=== PATIENT | female | born 1985 | race Caucasian/White ===

== ENCOUNTER 2016-10-25 11:12 | Emergency (ER) | payer OTHER ==
[2016-10-25 11:43] VITALS: BP 127/70
--- NOTE | 2016-10-25 12:52 | UC ---
Throat Pain/Nasal Thaddeus HPI - HPI Summary HPI Summary: The patient comes in today for: 1. Sore throat, and right ear pain. Onset: Sore throat for one day. Right otalgia x 2 weeks. Palliative/provocative: Tylenol and Excedrin helps the pain. Quality: Sharp itch Region: Throat and right ear. Severity: 2/10 Time: Constant. Associated symptoms: FEvers: None. Discharge from ear: Dark yellow, greenish. * - History of Current Complaint Chief Complaint: UCRespiratory Stated Complaint: CONGESTION SORE THROAT EARS Time Seen by Provider: 10/25/16 12:04 Hx Last Menstrual Period: 10/25/16 - Allergies/Home Medications Allergies/Adverse Reactions: Allergies Allergy/AdvReac Type Severity Reaction Status Date / Time No Known Allergies Allergy Verified 10/25/16 11:43 Home Medications: Home Medications Levothyroxine TAB* [Synthroid 137 MCG TAB*] 137 mcg PO 0800 10/25/16 [History Confirmed 10/25/16] PMH/Surg Hx/FS Hx/Imm Hx Endocrine History Of: Reports: Thyroid Disease - Hypothyroid, Dyslipidemia Denies: Diabetes, Hyperthyroidism, Hypothyroidism Cardiovascular History Of: Denies: Cardiac Disorders, Hypertension, Pacemaker/ICD, Myocardial Infarction , Congestive Heart Failure, Atrial Fibrillation, Deep Vein Thrombosis, Bleeding Disorders Respiratory History Of: Denies: COPD, Asthma, Bronchitis, Pneumonia, Pulmonary Embolism GI/ History Of: Denies: Gastroesophageal Reflux, Ulcer, Gastrointestinal Bleed, Gall Bladder Disease, Kidney Stones, Diverticulitis, Renal Disease, Urosepsis Neurological History Of: Denies: TIA, CVA, Dementia, Seizures, Migraine Psychological History Of: Denies: Anxiety, Depression, Bipolar Disorder, Schizophrenia, Post Traumatic Stress Disorder Cancer History Of: Denies: Lung Cancer, Colorectal Cancer, Breast Cancer, Prostate Cancer, Cervical Cancer - Surgical History Surgical History: Yes Surgery Procedure, Year, and Place: breast implants- 05. ectopic . ear surgery. c section x3. thyroidectomy - Family History Known Family History: Negative: Cardiac Disease, Hypertension - Social History Occupation: Employed Full-time Alcohol Use: None Substance Use Type: None Smoking Status (MU): Former Smoker Type: Cigarettes Amount Used/How Often: < 1/2 PPD Length of Time of Smoking/Using Tobacco: 17 Years Have You Smoked in the Last Year: Yes When Did the Patient Quit Smoking/Using Tobacco: 2014 - Immunization History Most Recent Influenza Vaccination: Not the Season Review of Systems Constitutional: Negative Skin: Negative Eyes: Negative ENT: Sore Throat, Ear Ache Respiratory: Negative Cardiovascular: Negative Gastrointestinal: Negative Genitourinary: Negative All Other Systems Reviewed And Are Negative: Yes Physical Exam Triage Information Reviewed: Yes Appearance: Well-Appearing, No Pain Distress, Well-Nourished Vital Signs: Initial Vital Signs Temp 98.0 F 10/25/16 11:40 Pulse 88 10/25/16 11:40 Resp 16 10/25/16 11:40 BP 127/70 10/25/16 11:40 Pulse Ox 98 10/25/16 11:40 Vital Signs Reviewed: Yes Eyes: Positive: Conjunctiva Clear. Negative: Discharge ENT: Positive: Hearing grossly normal, Other: - Right ear: blue pe tube in place. clearish fluid in the opening of the blue pe tube. The canal was erythematous and swollen. Pinna traction does elicit pain. Left ear: Canal not edematous or red, but the TM showed pus-like material on the TM.. Negative : Pharyngeal erythema Dental: Negative: Gross Decay/Caries @, Dental Fracture @ Neck: Positive: Supple, Nontender, No Lymphadenopathy. Negative: Nuchal Rigidity Respiratory: Positive: Lungs clear, No respiratory distress, No accessory muscle use. Negative: Rhonchi, Wheezing Cardiovascular: Positive: RRR, No Murmur Abdomen Description: Positive: Nontender, No Organomegaly, Soft Musculoskeletal: Positive: Strength Intact, ROM Intact Neurological: Positive: Alert, Muscle Tone Normal Psychological: Positive: Age Appropriate Behavior, Consolable Skin: Negative: rashes, breakdown Throat Pain/Nasal Course/Dx - Differential Dx/Diagnosis Provider Diagnoses: otitis media (left). otitis externa (right) Discharge - Discharge Plan Condition: Stable Disposition: HOME Patient Education Materials: Otitis Media (ED), Otitis Externa (ED) Forms: *Work Release Referrals: Delores Kauffman MD [Primary Care Provider] - 1 Week (Please see your primary care provider in about one to two weeks to see how well you are doing. If you get worse, please be seen sooner.)
== END 2016-10-25 13:15 | disposition home or self-care (01) ==
LOC: UCCORT 11:12
DX: H66.92 Otitis media, unspecified, left ear (principal); H60.91 Unspecified otitis externa, right ear; E03.9 Hypothyroidism, unspecified; Z87.891 Personal history of nicotine dependence
CPT/HCPCS: 99212; G0463

== ENCOUNTER 2016-11-06 19:24 | Emergency (ER) | payer OTHER ==
[2016-11-06 20:37] VITALS: BP 130/71
--- NOTE | 2016-11-06 20:52 | UC ---
Throat Pain/Nasal Thaddeus HPI - HPI Summary HPI Summary: throat pain for 2 days, no fever or other complaint, just finished PCN for ear infection, yesterday , still has left sided ear pain. - History of Current Complaint Chief Complaint: UCGeneralIllness Stated Complaint: THROAT Time Seen by Provider: 11/06/16 20:31 Hx Obtained From: Patient Hx Last Menstrual Period: September 2016 Onset/Duration: Sudden Onset, Lasting Days Severity: Moderate Associated Signs & Symptoms: Positive: Dysphagia, Hoarseness - Allergies/Home Medications Allergies/Adverse Reactions: Allergies Allergy/AdvReac Type Severity Reaction Status Date / Time No Known Allergies Allergy Verified 11/06/16 20:32 PMH/Surg Hx/FS Hx/Imm Hx Previously Healthy: Yes Endocrine History Of: Reports: Thyroid Disease - Hypothyroid, Dyslipidemia Denies: Diabetes, Hyperthyroidism, Hypothyroidism Cardiovascular History Of: Denies: Cardiac Disorders, Hypertension, Pacemaker/ICD, Myocardial Infarction , Congestive Heart Failure, Atrial Fibrillation, Deep Vein Thrombosis, Bleeding Disorders Respiratory History Of: Denies: COPD, Asthma, Bronchitis, Pneumonia, Pulmonary Embolism GI/ History Of: Denies: Gastroesophageal Reflux, Ulcer, Gastrointestinal Bleed, Gall Bladder Disease, Kidney Stones, Diverticulitis, Renal Disease, Urosepsis Neurological History Of: Denies: TIA, CVA, Dementia, Seizures, Migraine Psychological History Of: Denies: Anxiety, Depression, Bipolar Disorder, Schizophrenia, Post Traumatic Stress Disorder Cancer History Of: Denies: Lung Cancer, Colorectal Cancer, Breast Cancer, Prostate Cancer, Cervical Cancer - Surgical History Surgical History: Yes Surgery Procedure, Year, and Place: breast implants- 05. ectopic . ear surgery. c section x3. thyroidectomy - Family History Known Family History: Negative: Cardiac Disease, Hypertension - Social History Alcohol Use: None Substance Use Type: None Smoking Status (MU): Former Smoker Type: Cigarettes Amount Used/How Often: < 1/2 PPD Length of Time of Smoking/Using Tobacco: 17 Years Have You Smoked in the Last Year: Yes When Did the Patient Quit Smoking/Using Tobacco: 2014 - Immunization History Most Recent Influenza Vaccination: None Most Recent Tetanus Shot: UTD Most Recent Pneumonia Vaccination: N/A Review of Systems Constitutional: Negative Skin: Negative Eyes: Negative ENT: Sore Throat Respiratory: Negative Cardiovascular: Negative Gastrointestinal: Negative Genitourinary: Negative Motor: Negative Neurovascular: Negative Musculoskeletal: Negative Neurological: Negative Psychological: Negative All Other Systems Reviewed And Are Negative: Yes Physical Exam Triage Information Reviewed: Yes Appearance: Well-Nourished, Ill-Appearing, Pain Distress Vital Signs: Initial Vital Signs Temp 98.1 F 11/06/16 20:34 Pulse 62 11/06/16 20:34 Resp 18 11/06/16 20:34 BP 130/71 11/06/16 20:34 Pulse Ox 100 11/06/16 20:34 Vital Signs Reviewed: Yes Eye Exam: Normal ENT: Positive: Pharyngeal erythema, Tonsillar swelling, Tonsillar exudate, Other : - left TM has white exudate on TM, fluid behind TM, red and irritated ear canal, tube in right ear Dental Exam: Normal Neck exam: Normal Neck: Positive: Supple, Nontender, No Lymphadenopathy Respiratory Exam: Normal Respiratory: Positive: Chest non-tender, Lungs clear, Normal breath sounds Cardiovascular Exam: Normal Cardiovascular: Positive: RRR, No Murmur, Pulses Normal Abdominal Exam: Normal Abdomen Description: Positive: Nontender, No Organomegaly, Soft Bowel Sounds: Positive: Present Musculoskeletal Exam: Normal Musculoskeletal: Positive: Strength Intact, ROM Intact, No Edema Neurological Exam: Normal Neurological: Positive: Alert, Muscle Tone Normal Psychological Exam: Normal Skin Exam: Normal Throat Pain/Nasal Course/Dx - Course Course Of Treatment: hx obtained, exam performed, meds reviewed, rapid strep obtained, - Differential Dx/Diagnosis Differential Diagnosis/HQI/PQRI: Influenza, Laryngitis, Otitis Media, Pharyngitis, Sinusitis, URI Provider Diagnoses: serous otitis. pharyngitis Discharge - Discharge Plan Condition: Stable Disposition: HOME Prescriptions: predniSONE TAB* [Deltasone TAB*] 40 mg PO DAILY #14 tab Patient Education Materials: Serous Otitis Media (ED) Referrals: Delores Kauffman MD [Primary Care Provider] - Additional Instructions: take the prednisone as prescribed to help reduce inflammation and drain the ear. Warm compresses to the area and follow up with Dr Langley for any increase fever or ear pain.
== END 2016-11-06 21:06 | disposition home or self-care (01) ==
LOC: UCCORT 19:24
DX: H65.92 Unspecified nonsuppurative otitis media, left ear (principal); J02.9 Acute pharyngitis, unspecified; E03.9 Hypothyroidism, unspecified; E78.5 Hyperlipidemia, unspecified; Z87.891 Personal history of nicotine dependence
CPT/HCPCS: 87651; 99212; G0463

== ENCOUNTER 2017-08-30 12:46 | Emergency (ER) | payer OTHER ==
[2017-08-30 16:58] VITALS: BP 138/70
--- NOTE | 2017-08-30 17:30 | UC ---
Respiratory Complaint HPI - HPI Summary HPI Summary: 31F with cough ONSET YESTERDAY OF CONGESTION, KENT X 4 DAYS, ONSET OF KENT, STOMACH UPSET AND RIGHT EAR PAIN TODAY; DIARRHEA X 1 WK. FEVER LAST NIGHT 102. rest of the family has had the flu over the past few weeks and her sx really worsened in the past 24 hours and also with sinus pressure above and below her eyes. [ End ] - History of Current Complaint Chief Complaint: UCGeneralIllness Stated Complaint: KENT/CONGESTION/RT EAR COMPLAINT Time Seen by Provider: 08/30/17 17:25 Hx Obtained From: Patient Hx Last Menstrual Period: APPROX 1 MO AGO Onset/Duration: Gradual Onset Timing: Constant Severity Initially: Moderate Severity Currently: Moderate Pain Intensity: 5 Character: Cough: Nonproductive - Allergies/Home Medications Allergies/Adverse Reactions: Allergies Allergy/AdvReac Type Severity Reaction Status Date / Time No Known Allergies Allergy Verified 08/30/17 16:59 Home Medications: Home Medications [id number] [Tylenol Sinus Congestion 5-325-200 mg] 2 tab PO Q4H PRN 08/30/17 [History Confirmed 08/30/17] PMH/Surg Hx/FS Hx/Imm Hx Previously Healthy: Yes - Surgical History Surgical History: Yes Surgery Procedure, Year, and Place: breast implants- 05. ectopic . ear surgery. c section x3. thyroidectomy. REMOVAL OF BREAST IMPLANTS - Family History Known Family History: Negative: Cardiac Disease, Hypertension - Social History Occupation: Employed Full-time Lives: With Family Alcohol Use: None Substance Use Type: None Smoking Status (MU): Former Smoker Type: Cigarettes Amount Used/How Often: < 1/2 PPD Length of Time of Smoking/Using Tobacco: 17 Years Have You Smoked in the Last Year: Yes When Did the Patient Quit Smoking/Using Tobacco: 2014 - Immunization History Most Recent Influenza Vaccination: Not the 2017/2018 Season Most Recent Tetanus Shot: UTD Most Recent Pneumonia Vaccination: N/A Review of Systems Constitutional: Fever, Chills, Fatigue ENT: Sore Throat, Ear Ache, Nasal Discharge, Sinus Congestion, Sinus Pain/ Tenderness Respiratory: Cough Musculoskeletal: Myalgia Neurological: Headache Is Patient Immunocompromised?: No All Other Systems Reviewed And Are Negative: Yes Physical Exam Triage Information Reviewed: Yes Appearance: Well-Appearing, No Pain Distress, Well-Nourished Vital Signs: Initial Vital Signs Temp 98.4 F 08/30/17 16:50 Pulse 85 08/30/17 16:50 Resp 18 08/30/17 16:50 BP 138/70 08/30/17 16:50 Pulse Ox 100 08/30/17 16:50 Vital Signs Reviewed: Yes Eye Exam: Normal ENT Exam: Normal ENT: Positive: Hearing grossly normal, Nasal drainage, TM dull - b/l ear tubes, Sinus tenderness Dental Exam: Normal Neck exam: Normal Neck: Positive: 1 Respiratory Exam: Normal Cardiovascular Exam: Normal Musculoskeletal Exam: Normal Neurological Exam: Normal Psychological Exam: Normal Skin Exam: Normal UC Diagnostic Evaluation - Laboratory O2 Sat by Pulse Oximetry: 100 Respiratory Course/Dx - Course Course Of Treatment: neg flu. with sinus pressure, upper teeth tenderness for a few days worsening then advise to start antibiotics for bacterial sinusitis. she is aware of all SE and agreeable to med. RTO if any concerns -- viral at this time and supportive care for the next few days and if sx worsen then start antibiotics - Differential Dx/Diagnosis Differential Diagnosis/HQI/PQRI: Bronchitis, Influenza, Laryngitis, Sinusitis Provider Diagnoses: Sinusitis Discharge - Discharge Plan Condition: Good Disposition: HOME Prescriptions: Amoxicillin/Clavulanate TAB* [Augmentin TAB 875*] 875 mg PO BID #14 tab Patient Education Materials: Sinusitis (ED) Forms: *Work Release Referrals: Delores Kauffman MD [Primary Care Provider] - 4 Days Additional Instructions: At this time you appear to have a viral sinus infection. Please in the AM start claritin and flonase which is over the counter and in the PM use the Netti Pot. If your symptoms are not improved or worsening then please start the antibiotics in 2-3 days
== END 2017-08-30 18:14 | disposition home or self-care (01) ==
LOC: UCCORT 12:46
DX: J32.9 Chronic sinusitis, unspecified (principal); Z87.891 Personal history of nicotine dependence
CPT/HCPCS: 87502; 99212; G0463

== ENCOUNTER 2018-07-03 20:32 | Emergency (ER) | payer OTHER ==
[2018-07-03 21:52] VITALS: BP 120/73
[2018-07-03] MEDS ORDERED: Amoxicillin PO (*) 500 MG CAP PO ONE (22:05)
[2018-07-03] MEDS ORDERED: HYDROcodone/ACETAMIN 5-325 MG* 1 TAB PO ONE (22:05)
--- NOTE | 2018-07-03 22:09 | UC ---
UC General HPI - HPI Summary HPI Summary: pt is c/o pain to her R upper gum ever since she had 2-3 teeth removed from the site 8 days ago. also, she feels like a piece of bone may be left. It is sharp when she feels the site with her tongue. pt thinks there may be puss at the site. no odor or bad taste. - History of Current Complaint Chief Complaint: UCDentalProblem Stated Complaint: ORAL COMPLAINT Time Seen by Provider: 07/03/18 21:50 Hx Obtained From: Patient Hx Last Menstrual Period: 05/2018 Timing: Constant Pain Intensity: 6 Associated Signs & Symptoms: Negative: Fever - Allergy/Home Medications Allergies/Adverse Reactions: Allergies Allergy/AdvReac Type Severity Reaction Status Date / Time No Known Allergies Allergy Verified 07/03/18 21:48 Home Medications: Home Medications Ibuprofen TAB* [Advil TAB*] 800 mg PO Q6H PRN 07/03/18 [History Confirmed ] PMH/Surg Hx/FS Hx/Imm Hx Endocrine History: Thyroid Disease - Surgical History Surgical History: Yes Surgery Procedure, Year, and Place: breast implants- 05. ectopic . ear surgery. c section x3. thyroidectomy. REMOVAL OF BREAST IMPLANTS. T&A - Family History Known Family History: Negative: Cardiac Disease, Hypertension - Social History Lives: With Family Alcohol Use: Occasionally Substance Use Type: None Smoking Status (MU): Current Some Day Smoker Type: Cigarettes Amount Used/How Often: < 1/2 PPD Length of Time of Smoking/Using Tobacco: 17 Years Have You Smoked in the Last Year: Yes When Did the Patient Quit Smoking/Using Tobacco: 2014 - Immunization History Most Recent Influenza Vaccination: Not the 2016/2017 Season Most Recent Tetanus Shot: UTD Most Recent Pneumonia Vaccination: N/A Review of Systems All Other Systems Reviewed And Are Negative: Yes Constitutional: Positive: Negative Skin: Positive: Negative Eyes: Positive: Negative ENT: Positive: Dental Pain Respiratory: Positive: Negative Cardiovascular: Positive: Negative Gastrointestinal: Positive: Negative Genitourinary: Positive: Negative Motor: Positive: Negative Neurovascular: Positive: Negative Musculoskeletal: Positive: Negative Neurological: Positive: Negative Psychological: Positive: Negative Physical Exam Triage Information Reviewed: Yes Appearance: Well-Appearing Vital Signs: Initial Vital Signs Temp 98.3 F 07/03/18 21:48 Pulse 55 07/03/18 21:48 Resp 14 12/05/18 21:48 BP 120/73 07/03/18 21:48 Pulse Ox 100 07/03/18 21:48 Vital Signs Reviewed: Yes Eyes: Positive: Conjunctiva Clear ENT: Positive: Pharynx normal, TMs normal. Negative: Nasal congestion, Nasal drainage Dental: Positive: Other: - R upper gum has an extraction site that is opaque on surface but not fluctuant. No odor or puss draining. No submandibular adenopahty or swelling. No facial swelling. Neck: Positive: Supple, Nontender, No Lymphadenopathy Respiratory: Positive: Lungs clear, Normal breath sounds Cardiovascular: Positive: RRR Abdomen Description: Positive: Nontender, No Organomegaly, Soft Bowel Sounds: Positive: Present Musculoskeletal: Positive: ROM Intact Neurological: Positive: Alert Psychological: Positive: Age Appropriate Behavior Skin Exam: Normal Course/Dx - Course Course Of Treatment: possible dry socket and or infection. will tx for infection and pain. pt advised to f/u with her dentist at [facility] as soon as possible. advised to avoid drinking fom a straw and smoking. - Diagnoses Provider Diagnosis: Pain, dental Discharge - Sign-Out/Discharge Documenting (check all that apply): Patient Departure All imaging exams completed and their final reports reviewed: No Studies - Discharge Plan Condition: Stable Disposition: HOME Prescriptions: Amoxicillin PO (*) [Amoxicillin 875 MG (*)] 875 mg PO BID 10 Days #20 tab Naproxen [Naprosyn 500 mg tab] 500 mg PO BID 5 Days #10 tablet Patient Education Materials: Dry Socket (ED) Referrals: No Primary Care Phys,NOPCP [Primary Care Provider] - Additional Instructions: DIAGNOSIS: POST EXTRACTION DENTAL PAIN R UPPER GUM FOLLOW UP WITH YOUR DENTIST SOON POSSIBLE. - Billing Disposition and Condition Condition: STABLE Disposition: Home
== END 2018-07-03 22:21 | disposition home or self-care (01) ==
LOC: UCCORT 20:32
DX: K08.89 Other specified disorders of teeth and supporting structures (principal); F17.210 Nicotine dependence, cigarettes, uncomplicated
CPT/HCPCS: 99212; A9270-GY; G0463

== ENCOUNTER 2019-09-02 14:30 | Emergency (ER) | payer SELFPAY ==
[2019-09-02 15:01] VITALS: BP 117/78
--- NOTE | 2019-09-02 15:03 | UC ---
FLU HPI - HPI Summary HPI Summary: 33 yo woman with onset of flu like symptoms this morning, with cough, fever, malaise. Feeling much worse today, but has had a week of cough and right ear pain. Hx of chronic myringotomy tubes since childhood. Began smoking again last year after her close friend of [place] breast. Has mild shortness of breath. - History of Current Complaint Chief Complaint: UCGeneralIllness Stated Complaint: COUGH/FLU SYMP Time Seen by Provider: 09/02/19 15:00 Hx Obtained From: Patient Hx Last Menstrual Period: last month- had vasectomy Onset/Duration: Gradual Onset, Lasting Days Severity Currently: Moderate Severity Initially: Moderate Pain Intensity: 0 Associated Signs & Symptoms: Positive: Fever, T Max - 102 this morning, Myalgia , Sore Throat, Nasal Congestion, Headache - Risk Factors Influenza Risk Factors: Negative - Allergy/Home Medications Allergies/Adverse Reactions: Allergies Allergy/AdvReac Type Severity Reaction Status Date / Time No Known Allergies Allergy Verified 09/02/19 15:01 Home Medications: Home Medications Aspirin/Acetaminophen/Caffeine [Excedrin Extra Strength Caplet] 1 each PO BID PRN 09/02/19 [History Confirmed 09/02/19] PMH/Surg Hx/FS Hx/Imm Hx Previously Healthy: Yes Endocrine History: Hypothyroidism Psychological History: Other - lots of stress: friend and she and her have . - Surgical History Surgical History: Yes Surgery Procedure, Year, and Place: breast implants- 05. ectopic . ear surgery. c section x3. thyroidectomy. REMOVAL OF BREAST IMPLANTS. T&A - Family History Known Family History: Positive: Non-Contributory Negative: Cardiac Disease, Hypertension - Social History Occupation: Employed Full-time Lives: With Family Alcohol Use: Occasionally Substance Use Type: None Smoking Status (MU): Current Some Day Smoker Type: Cigarettes Amount Used/How Often: < 1/2 PPD Length of Time of Smoking/Using Tobacco: 17 Years Have You Smoked in the Last Year: Yes When Did the Patient Quit Smoking/Using Tobacco: 2014 - Immunization History Most Recent Influenza Vaccination: Not the 2017/2018 Season Most Recent Tetanus Shot: UTD Most Recent Pneumonia Vaccination: N/A Review of Systems All Other Systems Reviewed And Are Negative: Yes Constitutional: Positive: Fever, Fatigue Skin: Positive: Negative Eyes: Positive: Negative ENT: Positive: Sore Throat, Ear Ache, Nasal Discharge, Sinus Congestion Respiratory: Positive: Cough. Negative: Shortness Of Breath Cardiovascular: Positive: Negative Gastrointestinal: Positive: Negative Genitourinary: Positive: Negative Motor: Positive: Negative Neurovascular: Positive: Negative Musculoskeletal: Positive: Myalgia Neurological: Positive: Negative Psychological: Positive: Negative Is Patient Immunocompromised?: No Physical Exam Triage Information Reviewed: Yes Appearance: Ill-Appearing - looks pale and unwell. Vital Signs: Initial Vital Signs Temp 98.1 F 09/02/19 14:55 Pulse 78 09/02/19 14:55 Resp 16 09/02/19 14:55 BP 117/78 09/02/19 14:55 Pulse Ox 100 09/02/19 14:55 ENT: Positive: Pharyngeal erythema, TM dull - bilateral cerumen embedded tubes. TM dull and scarred. Neck: Positive: Supple, Nontender, No Lymphadenopathy Respiratory: Positive: No respiratory distress, No accessory muscle use, Decreased breath sounds, Wheezing - expiratory wheeze Abdomen Description: Positive: Nontender, No Organomegaly Musculoskeletal Exam: Normal Neurological Exam: Normal Neurological: Positive: Alert, Muscle Tone Normal Psychological Exam: Normal Skin Exam: Normal Diagnostics - Laboratory Lab Results: influenza b positive Flu Course/Dx - Course Course Of Treatment: Cough predates flu symptoms, and she has wheeze, malaise and is a smoker. will tx amoxicillin due to risk of bronchitis. Off work due to flu. Discussed Tamiflu with decision not to use. - Differential Dx/Diagnosis Differential Diagnosis/HQI/PQRI: Bronchitis, Influenza, Upper Respiratory Infection, Other - sinusitis Provider Diagnosis: Influenza B, Bronchitis Discharge ED - Sign-Out/Discharge Documenting (check all that apply): Patient Departure All imaging exams completed and their final reports reviewed: No Studies - Discharge Plan Condition: Stable Disposition: HOME Prescriptions: Amoxicillin PO (*) [Amoxicillin 875 MG (*)] 875 mg PO BID #14 tab Patient Education Materials: Acute Bronchitis (ED), Influenza (ED) Forms: *Work Release Referrals: No Primary Care Phys,NOPCP [Primary Care Provider] - Additional Instructions: Anticipate up to one week of flu symptoms, with fever and chills. Amoxicillin has been prescribed due to concern about bronchitis given your pre- existing cough. Focus on fluids and staying hydrated, use ibuprofen 600mg up to 3 times per day for fever or body aches. - Billing Disposition and Condition Condition: STABLE Disposition: Home
[2019-09-02 15:14] LABS: Influenza B Molecular POSITIVE (Negative)
== END 2019-09-02 15:45 | disposition home or self-care (01) ==
LOC: UCCORT 14:30
DX: J10.1 Influenza due to other identified influenza virus with other respiratory manifestations (principal); J40 Bronchitis, not specified as acute or chronic; F17.210 Nicotine dependence, cigarettes, uncomplicated
CPT/HCPCS: 99212; G0463

== ENCOUNTER 2019-09-09 16:56 | Emergency (ER) | payer OTHER ==
--- OUTSIDE RECORDS SUMMARY | 2019-09-09 17:08 | XMS REPORT | Continuity of Care Document ---
:1985 External Reference #:[id number] Author Name Oswaldo Culver MD,FACS Address [address] [place] [id number] Care Team Providers Name Role Phone Bertha Gar NP - Family Care Team Information Cigar Head Holer Problems Active Problems Provider Date Generalized abdominal pain Oswaldo Culver MD,FACS Onset: 08/13/2019 Constipation Nicho Moore MD Onset: 05/23/2018 Kidney stone Ashvin Beckford M.D. Onset: 05/21/2018 Digestive symptom Woodrow Jeffrey MD Onset: 05/02/2017 Chronic nonalcoholic liver disease Woodrow Jeffrey MD Onset: 05/02/2017 Right upper quadrant pain Woodrow Jeffrey MD Onset: 05/02/2017 Social History Type Date Description Comments Sex Unknown Tobacco Use Start: Unknown smokes about 4 cigarettes a day Smokeless Tobacco Never Used Smokeless Tobacco ETOH Use Denies alcohol use ETOH Use says rare etoh use Recreational Drug Use Denies Drug Use Tobacco Use Start: Unknown Patient is a current smoker, smokes every day Smoking Status Reviewed: 08/13/19 Patient is a current smoker, smokes every day Enjoy Exercising Enjoys exercising WALKS PERIODICALLY Tattoo/Piercing Tattoo RIGHT THIGH, LOWER BACK Tattoo/Piercing Pierced ears Tattoo/Piercing Pierced Nasal Area Allergies, Adverse Reactions, Alerts Description No Known Drug Allergies Medications Active Medications SIG Qnty Indications Ordering Provider Date Synthroid 1 by mouth every Unknown 150mcg Tablets day Immunizations Description No Information Available Vital Signs Date Vital Result Comment 08/13/2019 2:04pm BP Systolic Sitting Right Arm 128 mmHg BP Diastolic Sitting Right Arm 82 mmHg Body Temperature 97.4 F Heart Rate 69 /min Height 65.75 inches 5'5.75" Weight 185.00 lb BMI (Body Mass Index) 30.1 kg/m2 BSA (Body Surface Area) 1.93 m2 [place] body weight in kilograms 58 kg O2 % BldC Oximetry 98 % ra 05/23/2018 9:48am BP Systolic Sitting Left Arm 120 mmHg BP Diastolic Sitting Left Arm 82 mmHg Heart Rate 70 /min Respiratory Rate 16 /min Height 65.75 inches 5'5.75" Weight 173.00 lb BMI (Body Mass Index) 28.1 kg/m2 BSA (Body Surface Area) 1.88 m2 [place] body weight in kilograms 58 kg Results Description No Information Available Procedures Description No Information Available Medical Devices Description No Information Available Encounters Description No Information Available Assessments Date Code Description Provider 08/13/2019 R10.84 Generalized abdominal pain Oswaldo Culver MD,FACS Plan of Treatment 08/13/2019 - Oswaldo Culver MD,FACSR10.84 Generalized abdominal painComments: intermittent generalized abdominal pain with diarrhea and constipation. family h /o IBS and IBD. i discussed the options with her and will plan forColonoscopy and possible biopsy.i don't think removing her gallbladder would surely help with her clinical picture.if no significant pathology identified oncolonoscopy i would consider CT scan abdomen and pelvic and referral to GI for possible IBS picture.Risks and benefits of the procedure were discussed with the patient. Risks include, but are not limited to, infection, bleeding, bowel perforation, organ or tissue damage or malfunction, allergy, and potentially . Patient understood and agreed to the procedure. Functional Status Description No Information Available Mental Status Description No Information Available Referrals Description No Information Available
--- NOTE | 2019-09-09 17:51 | UC ---
Ear Complaint HPI - HPI Summary HPI Summary: 33 yo female presents with ear pain. She tells me that she was dx'd with the flu and bronchitis last week and is still taking amoxicillin BID for this. OVer the last 2-3 days has noticed right ear pain and decreased hearing. Denies fever , chills, SOB, abdominal pain, n/v - History of Current Complaint Stated Complaint: EAR COMPLAINT Time Seen by Provider: 09/09/19 17:51 Hx Obtained From: Patient Hx Last Menstrual Period: last month- had vasectomy Onset/Duration: Gradual Onset Severity Initially: Mild Severity Currently: Mild Pain Intensity: 3 Pain Scale Used: 0-10 Numeric - 3 - Allergies/Home Medications Allergies/Adverse Reactions: Allergies Allergy/AdvReac Type Severity Reaction Status Date / Time No Known Allergies Allergy Verified 09/09/19 17:53 PMH/Surg Hx/FS Hx/Imm Hx Endocrine History: Hypothyroidism - Surgical History Surgical History: Yes Surgery Procedure, Year, and Place: breast implants- 05. ectopic . ear surgery. c section x3. thyroidectomy. REMOVAL OF BREAST IMPLANTS. T&A - Family History Known Family History: Positive: Non-Contributory Negative: Cardiac Disease, Hypertension - Social History Occupation: Employed Full-time Lives: With Family Alcohol Use: Occasionally Substance Use Type: None Smoking Status (MU): Current Some Day Smoker Type: Cigarettes Amount Used/How Often: < 1/2 PPD Length of Time of Smoking/Using Tobacco: 17 Years Have You Smoked in the Last Year: Yes When Did the Patient Quit Smoking/Using Tobacco: 2014 - Immunization History Most Recent Influenza Vaccination: Not the 2017/2018 Season Most Recent Tetanus Shot: UTD Most Recent Pneumonia Vaccination: N/A Review of Systems All Other Systems Reviewed And Are Negative: No Constitutional: Positive: Negative Skin: Positive: Negative Eyes: Positive: Negative ENT: Positive: Ear Ache Respiratory: Positive: Cough Cardiovascular: Positive: Negative Gastrointestinal: Positive: Negative Neurological/Mental Status: Positive: Negative Psychological: Positive: Negative Physical Exam - Summary Physical Exam Summary: GENERAL: NAD. WDWN. No pain distress. SKIN: No rashes, sores, lesions, or open wounds. HEENT: Head: AT/NC Eyes: EOM intact. Conjunctiva clear without inflammation or discharge. Ears: Hearing grossly normal. LEFT TM intact, no bulging, erythema, or edema. RIGHT TM occluded by brown waxy cerumen with ear tube in place Nose: Nasal mucosa pink and moist. NTTP maxillary and frontal sinus. Throat: Posterior oropharynx without exudates, erythema, or tonsillar enlargement. Uvula midline. NECK: Supple. Nontender. No lymphadenopathy. CHEST: CTAB. No r/r/w. No accessory muscle use. Breathing comfortably and in no distress. CV: RRR. Pulses intact. Cap refill <2seconds NEURO: Alert. PSYCH: Age appropriate behavior. Triage Information Reviewed: Yes Vital Signs: Vital Signs: Temp Pulse Resp BP Pulse Ox 98.2 F 62 16 118/74 100 09/09/19 17:50 09/09/19 17:50 09/09/19 17:50 09/09/19 17:50 09/09/19 17:50 Vital Signs Reviewed: Yes Ear Complaint Course/Dx - Course Course Of Treatment: Suspect symptoms due to cerumen impaction - advised to try OTC debrox - Differential Dx/Diagnosis Provider Diagnosis: Cerumen impaction Discharge ED - Sign-Out/Discharge Documenting (check all that apply): Patient Departure All imaging exams completed and their final reports reviewed: No Studies - Discharge Plan Condition: Stable Disposition: HOME Patient Education Materials: Cerumen Impaction (ED) Referrals: No Primary Care Phys,NOPCP [Primary Care Provider] - Additional Instructions: PLEASE TRY DEBROX [id number] FOR YOUR EAR WAX - Billing Disposition and Condition Condition: STABLE Disposition: Home
[2019-09-09 17:57] VITALS: BP 118/74
== END 2019-09-09 18:17 | disposition home or self-care (01) ==
LOC: UCCORT 16:56
DX: H61.21 Impacted cerumen, right ear (principal); R05 Cough; F17.210 Nicotine dependence, cigarettes, uncomplicated
CPT/HCPCS: 99211; G0463